=== PATIENT | male | born 1960 | race Caucasian/White ===

== ENCOUNTER 2019-02-08 07:02 | Day surgery (SDC) | payer OTHER ==
[2019-02-08] VITALS (7 sets, daily range): BP systolic 92–114; BP diastolic 56–68; PULSE 62–68; RESP 10–22; Ht 180.3 cm; Wt 80.9 kg
[~2019-02-08] VITALS: Ht 180.3 cm; Wt 80.9 kg
[~2019-02-08 07:02] MED LIST: ATORVASTATIN; DULAGLUTIDE; GLYBURIDE; METFORMIN; [UNRECOGNIZED DRUG - REMARK]
[2019-02-08] MEDS ORDERED: LIDOCAINE 2% (SDV) 5 ML INJ ONE (08:26)
[2019-02-08] MEDS ORDERED: PROPOFOL 40 ML ONE (08:26)
[2019-02-08] MEDS ORDERED: morphine 2 MG INJ IV PRN (08:30)
[2019-02-08] MEDS ORDERED: ONDANSETRON 4 MG INJ IV PRN (08:30)
== END 2019-02-08 14:05 | disposition home or self-care (01) ==
LOC: GIL 07:02
PROVIDERS: ATTEND Internal Medicine Gastroenterology
DX: Z86.010 Personal history of colon polyps (principal); D12.2 Benign neoplasm of ascending colon; D12.4 Benign neoplasm of descending colon; E11.9 Type 2 diabetes mellitus without complications; Z79.84 Long term (current) use of oral hypoglycemic drugs
CPT/HCPCS: 82962; 88305